=== PATIENT | female | born 1960 | race Caucasian/White ===

== ENCOUNTER 2018-01-19 09:56 | Day surgery (SDC) | payer OTHER ==
[2018-01-19] MEDS ORDERED: FENTAnyl 50 MCG/ML VIAL (11:35)
[2018-01-19] MEDS ORDERED: MIDAZOLAM 1 MG/ML 2 ML INJ ×3 (11:35)
== END 2018-01-19 12:08 | disposition home or self-care (01) ==
LOC: GIL 09:56
DX: Z12.11 Encounter for screening for malignant neoplasm of colon (principal); K21.0 Gastro-esophageal reflux disease with esophagitis; K20.8 Other esophagitis; I10 Essential (primary) hypertension
CPT/HCPCS: 43239; 88305; 88312